=== PATIENT | female | born 1960 | race Caucasian/White ===

== ENCOUNTER 2024-02-12 12:59 | Day surgery (SDC) | payer BC ==
[~2024-02-12] VITALS: Ht 170.2 cm; Wt 57.2 kg
[~2024-02-12 12:59] MED LIST: B-12100010 PO; CALTTAB6 PO; LEXA1TAB PO; LISI10TA22 PO; LISI30TA4 PO; LR 1,000 ML IV SCH; MECL-136 PO; METO1TAB7 PO; PANT40TA29 PO; SYMB16INH INH
[2024-02-12] MEDS: FLURBIPROFEN 0.03% OPHTH SOLN 2.5 ML OS SCH (13:49)
[2024-02-12] MEDS: CYCLOPENTOLATE 1% OPHTH SOLN 2ML BTL OS SCH (13:49)
[2024-02-12] MEDS: PHENYLEPHRINE 2.5% OPHTH SOL 2ML OS SCH (13:49)
[2024-02-12] MEDS: TETRACAINE 0.5% OPHTH SOLN 4ML OS SCH (13:49)
[2024-02-12] MEDS ORDERED: MIDAZOLAM INJ 2MG/2ML VIAL As Ordered ONE (14:48)
[2024-02-12] MEDS ORDERED: fentaNYL 100 MCG/2 ML INJECTION As Ordered ONE (14:48)
[2024-02-12] MEDS: LIDOCAINE 1% SDV 5ML VIAL As Ordered ONE (15:24)
[2024-02-12] MEDS: CEFUROXIME 1MG/0.1ML INTRACAMERAL INJ As Ordered ONE (15:25)
[2024-02-12 15:35] VITALS: BP 151/76; TEMP 97.4; O2SAT 96
== END 2024-02-12 15:50 | disposition home or self-care (01) ==
LOC: M SDC 12:59
PROVIDERS: ATTEND Ophthalmology
DX: H25.9 Unspecified age-related cataract (principal); I10 Essential (primary) hypertension; J44.9 Chronic obstructive pulmonary disease, unspecified; F17.210 Nicotine dependence, cigarettes, uncomplicated
CPT/HCPCS: 66984; J0697; J2250; J3010

== ENCOUNTER 2024-02-26 10:50 | Day surgery (SDC) | payer BC ==
[~2024-02-26] VITALS: Ht 170.2 cm; Wt 60.3 kg
[2024-02-26] MEDS ORDERED: MIDAZOLAM INJ 2MG/2ML VIAL As Ordered ONE (12:41)
[2024-02-26] MEDS ORDERED: fentaNYL 100 MCG/2 ML INJECTION As Ordered ONE (12:42)
[2024-02-26] MEDS: FLURBIPROFEN 0.03% OPHTH SOLN 2.5 ML OD SCH (12:57)
[2024-02-26] MEDS: TETRACAINE 0.5% OPHTH SOLN 4ML OD SCH (12:57)
[2024-02-26] MEDS: PHENYLEPHRINE 2.5% OPHTH SOL 2ML OD SCH (12:57)
[2024-02-26] MEDS: CYCLOPENTOLATE 1% OPHTH SOLN 2ML BTL OD SCH (12:57)
[2024-02-26] MEDS: LIDOCAINE 1% SDV 5ML VIAL As Ordered ONE (14:16)
[2024-02-26] MEDS: CEFUROXIME 1MG/0.1ML INTRACAMERAL INJ As Ordered ONE (14:23)
[2024-02-26 14:36] VITALS: BP 159/72; TEMP 98.2; O2SAT 96
== END 2024-02-26 14:50 | disposition home or self-care (01) ==
LOC: M SDC 10:50
PROVIDERS: ATTEND Ophthalmology
DX: H25.9 Unspecified age-related cataract (principal); F17.210 Nicotine dependence, cigarettes, uncomplicated; Z98.42 Cataract extraction status, left eye; Z79.899 Other long term (current) drug therapy
CPT/HCPCS: 66984; J0697; J2250; J3010